=== PATIENT | female | born 1970 | race American Indian/Alaskan Native ===

== ENCOUNTER 2020-05-09 10:04 | Emergency (ER) | payer OTHER ==
[2020-05-09] MEDS ORDERED: predniSONE 20 MG TAB PO ONE (10:56)
[2020-05-09] MEDS ORDERED: IPRATROPIUM/ALBUTEROL SULFATE 3 ML AMPUL.NEB IH ONE (10:56)
--- NOTE | 2020-05-09 11:06 | Emergency Department Report ---
ED Asthma HPI - General Chief Complaint: Adult Asthma Stated Complaint: TOOTH PAIN/ASTHMA Time Seen by Provider: 05/09/20 10:56 Source: patient Mode of arrival: Ambulatory Limitations: No Limitations - History of Present Illness Initial Comments: This is a 49-year-old female nontoxic, well nourished in appearance, no acute signs of distress presents to the ED with c/o of acute on chronic asthma exacerbation. Patient also has a second complaint of left lower toothache with some swelling. Patient stated she is out of her albuterol inhaler 1 month. Patient denies any cough. Patient describes toothache as aching level of 8 out of 10. Patient denies any sick contact. Patient denies any recent travels, long car, recent hospital stays. Patient denies any calf pain or calf tenderness. Patient denies any chest pain, short of breath, fever, chills, nausea, vomiting, hemoptysis, numbness, tingling, headache or stiff neck. Past medical history i ncludes asthma. MD Complaint: wheezing, other (dental pain) -: days(s) Asthma History: childhood onset Severity: mild Context: none known Associated Symptoms: none - Related Data Current Asthma Therapy: none Previous Rx's Medication Instructions Recorded Last Taken Type ALBUTEROL NEB's [Proventil 0.083% 2.5 mg IH TID PRN #1 box 05/09/20 Unknown Rx NEBS] Albuterol Mdi (or & Nicu Only) 2 puff IH QID PRN #8.5 gram 05/09/20 Unknown Rx [ProAir HFA Inhaler] Clindamycin [Clindamycin CAP] 300 mg PO Q8H #21 cap 05/09/20 Unknown Rx Allergies Allergy/AdvReac Type Severity Reaction Status Date / Time No Known Allergies Allergy Verified 05/09/20 10:27 ED Review of Systems ROS: Stated complaint: TOOTH PAIN/ASTHMA Other details as noted in HPI Constitutional: denies: chills, fever Eyes: denies: eye pain, eye discharge, vision change ENT: dental pain. denies: ear pain, throat pain Respiratory: wheezing. denies: cough, shortness of breath Cardiovascular: denies: chest pain, palpitations Endocrine: no symptoms reported Gastrointestinal: denies: abdominal pain, nausea, diarrhea Genitourinary: denies: urgency, dysuria, discharge Musculoskeletal: denies: back pain, joint swelling, arthralgia Skin: denies: rash, lesions Neurological: denies: headache, weakness, paresthesias Psychiatric: denies: anxiety, depression Hematological/Lymphatic: denies: easy bleeding, easy bruising ED Past Medical Hx - Past Medical History Previous Medical History?: Yes Hx Asthma: Yes - Surgical History Past Surgical History?: Yes Additional Surgical History: hysterectomy - Social History Smoking Status: Never Smoker Substance Use Type: None - Medications Home Medications: Home Medications Medication Instructions Recorded Confirmed Last Taken Type ALBUTEROL NEB's [Proventil 0.083% 2.5 mg IH TID PRN #1 box 05/09/20 Unknown Rx NEBS] Albuterol Mdi (or & Nicu Only) 2 puff IH QID PRN #8.5 gram 05/09/20 Unknown Rx [ProAir HFA Inhaler] Clindamycin [Clindamycin CAP] 300 mg PO Q8H #21 cap 05/09/20 Unknown Rx ED Physical Exam - General Limitations: No Limitations General appearance: alert, in no apparent distress - Head Head exam: Present: atraumatic, normocephalic - Eye Eye exam: Present: normal appearance - Expanded ENT Exam Expanded Ear exam: Present: normal external inspection Mouth exam: Present: normal external inspection, tongue normal. Absent: drooling, trismus, muffled voice Teeth exam: Present: dental caries, fractured tooth #, dental tenderness #, gingival enlargement, other (some mandbile swelling with no induration or flutance noted.) Throat exam: Positive: normal inspection, other (uvula midline). Negative: tonsillar erythema, tonsillomegaly, tonsillar exudate, R peritonsillar mass, L peritonsillar mass - Neck Neck exam: Present: normal inspection, full ROM. Absent: tenderness, meningismus, lymphadenopathy - Respiratory Respiratory exam: Present: wheezes (bilateral upper and lower lobes). Absent: respiratory distress, rales, rhonchi, stridor, chest wall tenderness, accessory muscle use, decreased breath sounds, prolonged expiratory - Cardiovascular Cardiovascular Exam: Present: regular rate, normal rhythm, normal heart sounds. Absent: bradycardia, tachycardia, irregular rhythm, systolic murmur, diastolic murmur, rubs, gallop - Extremities Exam Extremities exam: Present: full ROM - Back Exam Back exam: Present: full ROM - Neurological Exam Neurological exam: Present: alert, oriented X3, normal gait - Psychiatric Psychiatric exam: Present: normal affect, normal mood - Skin Skin exam: Present: warm, dry, intact, normal color. Absent: rash ED Course Vital Signs 05/09/20 05/09/20 10:26 11:07 Temperature 98.8 F Pulse Rate 72 Pulse Rate [ 75 Anterior Bilateral Throughout] Respiratory 18 Rate Respiratory 18 Rate [Anterior Bilateral Throughout] Blood Pressure 123/76 O2 Sat by Pulse 98 Oximetry - Reevaluation(s) Reevaluation #1: 05/09/20 11:09 Patient is speaking in full sentences with no signs of distress noted. ED Medical Decision Making - Medical Decision Making This is a 49-year-old female that presents with asthma extubation and dental caries. Patient stable and was examined by me. Patient is stable and was examined by me. Patient did receive DuoNeb and steroids in the ED which patient the symptoms has resolved and subsided. Posttreatment and there is no wheezing upon auscultation. Patient is discharged with albuterol and prednisone. Patient was referred to Follow-up with a primary care doctor in 3-5 days or if symptoms worsen and continue return to emergency room as soon as possible. At time of discharge, the patient does not seem toxic or ill in appearance. No acute signs of distress noted. Patient agrees to discharge treatment plan of care. No further questions noted by the patient. This chart is dictated with using [employer] Dictation Program Critical care attestation.: If time is entered above; I have spent that time in minutes in the direct care of this critically ill patient, excluding procedure time. ED Disposition Clinical Impression: Dental caries, Gingivitis, Dental abscess Asthma exacerbation Qualifiers: Asthma severity: mild Asthma persistence: intermittent Qualified Code(s): J45.21 - Mild intermittent asthma with (acute) exacerbation Disposition: - TO HOME OR SELFCARE Is pt being admited?: No Does the pt Need Aspirin: No Condition: Stable Additional Instructions: Follow-up with a primary care doctor in 3-5 days or if symptoms worsen and continue return to emergency room as soon as possible. Follow-up with a oral surgeon in 24 hours or if symptoms worsen and continue return to the emergency room soon as possible. [facility] Address: [id number], [place] [address] Hours: Wednesday Closed Wednesday 8AM-1PM, 2-5PM Wednesday 8AM-1PM, 2-5PM Wednesday 8AM-1PM, 2-5PM 8AM-1PM, 2-5PM Wednesday 7AM-2PM Wednesday Closed Prescriptions: Clindamycin [Clindamycin CAP] 300 mg PO Q8H #21 cap Albuterol Mdi (or & Nicu Only) [ProAir HFA Inhaler] 2 puff IH QID PRN #8.5 gram PRN Reason: Shortness Of Breath ALBUTEROL NEB's [Proventil 0.083% NEBS] 2.5 mg IH TID PRN #1 box PRN Reason: Wheezing Referrals: PRIMARY CARE, [Referring] - 3-5 Days TIKI BECERRA MD [Staff Physician] - 3-5 Days [facility] [Provider Group] - 3-5 Days Forms: Work/School Release Form(ED)
[2020-05-09 11:07] VITALS: BP 123/76
== END 2020-05-09 11:47 | disposition home or self-care (01) ==
LOC: ED 10:04
DX: K02.9 Dental caries, unspecified (principal); K05.10 Chronic gingivitis, plaque induced; K04.7 Periapical abscess without sinus; J45.901 Unspecified asthma with (acute) exacerbation; Z79.899 Other long term (current) drug therapy
CPT/HCPCS: 94640; 99282; J7512; 94644

== ENCOUNTER 2020-09-30 08:09 | Emergency (ER) | payer SELFPAY ==
--- NOTE | 2020-09-30 08:24 | Emergency Department Report ---
Blank Doc - Documentation Documentation: 50-year-old female with right facial swelling and right neck lymphedema. 1- This initial assessment/diagnostic orders/clinical plan/ treatment(s) is/are subject to change based on pt's health status, clinical progression and re- assessment by fellow clinical providers in the ED. Further treatment and workup at subsequent clinical provers discretion. Patient/guardians urged not to elope from ED as their condition may be serious if not clinically assessed and managed. 2-labs 3-possible CT
[2020-09-30 09:18] LABS: Basophils % (Auto) 0.6 % (0.0-1.8); Eosinophils % (Auto) 0.3 % (0.0-4.3); Hemoglobin 13.3 gm/dl (10.1-14.3); Lymphocytes % (Auto) 29.2 % (13.4-35.0); Mean Corpuscular HGB Conc 33 % (30-34); Mean Corpuscular Volume 89 fl (79-97); Monocytes # (Auto) 0.2 K/mm3 (0.0-0.8); Monocytes % (Auto) 6.8 % (0.0-7.3); Platelet Count 173 K/mm3 (140-440); Red Cell Distribution Width 13.9 % (13.2-15.2)
[2020-09-30 09:33] LABS: Blood Urea Nitrogen 12 mg/dL (7-17); Calcium 8.8 mg/dL (8.4-10.2); Hemolysis Index 1
[2020-09-30 10:14] LABS: BUN/Creatinine Ratio 17
--- NOTE | 2020-09-30 10:24 | Emergency Department Report ---
ED General Adult HPI - General Chief complaint: Skin/Abscess/Foreign Body Stated complaint: SWOLLEN TONGUE AND FACE PUI?: No Time Seen by Provider: 09/30/20 08:22 Source: patient, RN notes reviewed, old records reviewed Mode of arrival: Ambulatory Limitations: No Limitations - History of Present Illness Initial comments: The patient was evaluated in the emergency department for symptoms described in the history of present illness. He/she was evaluated in the context of the global COVID-19 pandemic, which necessitated consideration that the patient might be at risk for infection with the virus that causes COVID-19. Instit utional protocols and algorithms that pertain to the evaluation of patients at risk for COVID-19 are in a state of rapid change based on information released by regulatory bodies including the CDC and federal and state organizations. These policies and algorithms were followed during the patient's care in the emergency department. Please note that these policies, procedures and recommendations changed on a rapid basis. During the entire history and physical examination, I was chaperoned and escorted by Ms. Luna Salas The patient is a 50-year-old female. She is not known to myself previously. She has a distant history of hysterectomy, and dental caries. She may also have a history of obstructed sublingual glands in the past. She presents to the ER with a complaint of painless submandibular swelling, present over the past 24 hours. She also feels like she has "swollen lymph nodes on the inferior aspect of her jaw. Denies headache, neck pain, chest pain, abdominal pain, shortness of breath, vomiting, diaphoresis, loss of taste and smell. Patient states that this has not happened to her for a while. She has no head or scalp pain. She reports that she was presumptively diagnosed a while back with "swollen glands", but has not followed up with ENT. The patient reports she does not take antihypertensive therapy, specifically, does not take SANDRA inhibitors. -: Sudden, hour(s) (24 hours) Location: neck Radiation: non-radiation Consistency: constant Improves with: none Worsens with: none Associated Symptoms: denies other symptoms - Related Data Previous Rx's Medication Instructions Recorded Last Taken Type ALBUTEROL NEB's [Proventil 0.083% 2.5 mg IH TID PRN #1 box 05/09/20 Unknown Rx NEBS] Albuterol Mdi (or & Nicu Only) 2 puff IH QID PRN #8.5 gram 05/09/20 Unknown Rx [ProAir HFA Inhaler] Clindamycin [Clindamycin CAP] 300 mg PO Q8H #21 cap 05/09/20 Unknown Rx Allergies Allergy/AdvReac Type Severity Reaction Status Date / Time No Known Allergies Allergy Verified 09/30/20 08:12 ED Review of Systems ROS: Stated complaint: SWOLLEN TONGUE AND FACE Other details as noted in HPI Constitutional: denies: fever, malaise, weakness Eyes: denies: eye discharge ENT: throat pain (Patient subjectively feels like her throat is tight. There is no dysphonia.), congestion. denies: ear pain, dental pain, hearing loss, epistaxis Respiratory: denies: cough, shortness of breath Cardiovascular: denies: chest pain Gastrointestinal: denies: abdominal pain Genitourinary: as per HPI Skin: denies: lesions Neurological: denies: weakness Hematological/Lymphatic: denies: easy bleeding ED Past Medical Hx - Past Medical History Hx Asthma: Yes - Surgical History Additional Surgical History: hysterectomy - Social History Smoking Status: Never Smoker Substance Use Type: None - Medications Home Medications: Home Medications Medication Instructions Recorded Confirmed Last Taken Type ALBUTEROL NEB's [Proventil 0.083% 2.5 mg IH TID PRN #1 box 05/09/20 Unknown Rx NEBS] Albuterol Mdi (or & Nicu Only) 2 puff IH QID PRN #8.5 gram 05/09/20 Unknown Rx [ProAir HFA Inhaler] Clindamycin [Clindamycin CAP] 300 mg PO Q8H #21 cap 05/09/20 Unknown Rx ED Physical Exam - General Limitations: No Limitations General appearance: alert, in no apparent distress, obese - Head Head exam: Present: atraumatic, normocephalic - Eye Eye exam: Present: normal appearance, PERRL, EOMI, nystagmus - ENT ENT exam: Present: normal exam, normal orophraynx, mucous membranes moist, TM's normal bilaterally, normal external ear exam - Neck Neck exam: Present: full ROM, other (There is nontender sublingual swelling noted, midline, oval-shaped, approximately 5 x 6 cm. There is no redness, pus or streaking.). Absent: tenderness, meningismus, thyromegaly - Respiratory Respiratory exam: Present: normal lung sounds bilaterally. Absent: respiratory distress, wheezes, rales, rhonchi, stridor, decreased breath sounds - Cardiovascular Cardiovascular Exam: Present: regular rate, normal rhythm, normal heart sounds. Absent: bradycardia, tachycardia, irregular rhythm, systolic murmur, diastolic murmur, rubs, gallop - GI/Abdominal GI/Abdominal exam: Present: soft, normal bowel sounds. Absent: distended, tenderness, guarding, rebound, rigid, pulsatile mass - Extremities Exam Extremities exam: Present: normal inspection, full ROM, other (2+ pulses noted in the bilateral upper and lower extremities. There is no palpable cord. negative Homans sign. Muscular compartments are soft. The pelvis is stable.). Absent: pedal edema, calf tenderness - Back Exam Back exam: Present: normal inspection, full ROM. Absent: tenderness, CVA tenderness (R), CVA tenderness (L), paraspinal tenderness, vertebral tenderness - Neurological Exam Neurological exam: Present: alert, normal gait, other (No facial droop. Tongue midline. Extraocular movements intact bilaterally. Facial sensation intact to light touch in V1, V2, V3 distribution bilaterally. 5 and a 5 strength in 4 extremities. Sensation intact to light touch in 4 extremities.). Absent: motor sensory deficit - Psychiatric Psychiatric exam: Present: anxious - Skin Skin exam: Present: warm, dry, intact, normal color. Absent: rash ED Course Vital Signs 09/30/20 09/30/20 08:13 12:19 Temperature 98.9 F 98.7 F Pulse Rate 67 62 Respiratory 18 18 Rate Blood Pressure 128/74 Blood Pressure 128/74 [Left] O2 Sat by Pulse 99 99 Oximetry - Reevaluation(s) Reevaluation #1: 09/30/20 10:52 Differential diagnosis, including but not limited to: Sublingual gland obstr uction, infection, malignancy Assessment and plan: 50-year-old female who presents with a complaint of rapid onset sublingual swelling, over the past 24 hours. She is afebrile, with reassuring vital signs, without stridor or dysphonia, speaking in full sentences, speaking on her cellular phone when I initially entered the room, does not appear to be in acute distress. She is found to have numerous dental caries and poor dentition. However, she has no stridor, she is speaking in complete sentences, and she is in no acute respiratory distress. The tongue is not swollen, the trachea is midline and nontender, and her sublingual swelling is nontender without redness, pus, streaking or significant induration, crepitus, or fluctuance. However, given that the patient endorses that this rapidly developed in the past 24 hours, we will obtain CT scan of the neck to exclude surgical process. Have discussed this plan of care with the patient, who is amenable. Laboratory studies ordered prior to my personal evaluation of this patient, they were reviewed and fairly unremarkable. Reevaluation #2: 09/30/20 12:12 CT scan reviewed and appreciated. Patient resting comfortably and protecting airway. We will initiate antibiotic therapy. This [facility] does not have a ENT, or oral maxillofacial surgery available for consultation. We will therefore discuss with either ENT, or OMFS consultants at [facility]. Have placed a page out to the [facility] transfer center. 09/30/20 12:14 - Consultations Consultation #1: 09/30/20 12:29 Discussed patient's history, physical, pertinent laboratory studies and imaging findings with the ENT on-call for [facility], Dr. Lassiter. We both agree that this is unlikely to be Ludewig's angina based off of the patient's presentation, inability to protect her airway. He further advises that dental control for presumed odontogenic infection is likely to be the best course of action for this patient. This [facility] does not have dental services or OMFS available for consultation. I have therefore requested that [facility] transfer center contacted OMFS to discuss plan of care. Consultation #2: 09/30/20 12:50 Have discussed patient's history, physical, pertinent laboratory studies and imaging findings with Dr. Wellington, [facility] indicates his group can evaluate the patient in the emergency room. Have discussed patient's history, physical, pertinent laboratory studies and helga ging findings with the ER physician, Dr. Nelson Patient to be transferred for [facility] for consultative services and evaluation not available at this facility. Discussed this with the patient. She is amenable to transfer for definitive care and services not available at this facility. At the moment she is protecting her airway, is not stridulous, in no acute distress. Patient has a potentially emergent/surgical condition which cannot be definitively managed at this time at this hospital as we do not have the necessary subspecialty services. However, she is hemodynamically stable and protecting her airway, and suitable for transfer at this time for definitive management. 09/30/20 12:55 ED Medical Decision Making - Lab Data Result diagrams: 09/30/20 08:55 09/30/20 08:55 Vital Signs 09/30/20 08:13 Temperature 98.9 F Pulse Rate 67 Respiratory 18 Rate Blood Pressure 128/74 O2 Sat by Pulse 99 Oximetry Lab Results 09/30/20 09/30/20 09/30/20 Range/Units 08:55 08:55 08:55 WBC 3.4 L (4.5-11.0) K/mm3 RBC 4.50 (3.65-5.03) M/mm3 Hgb 13.3 (10.1-14.3) gm/dl Hct 40.0 (30.3-42.9) % MCV 89 (79-97) fl MCH 30 (28-32) pg MCHC 33 (30-34) % RDW 13.9 (13.2-15.2) % Plt Count 173 (140-440) K/mm3 Lymph % (Auto) 29.2 (13.4-35.0) % [place] % (Auto) 6.8 (0.0-7.3) % Eos % (Auto) 0.3 (0.0-4.3) % Baso % (Auto) 0.6 (0.0-1.8) % Lymph # (Auto) 1.0 L (1.2-5.4) K/mm3 [place] # (Auto) 0.2 (0.0-0.8) K/mm3 Eos # (Auto) 0.0 (0.0-0.4) K/mm3 Baso # (Auto) 0.0 (0.0-0.1) K/mm3 Seg Neutrophils % 63.1 (40.0-70.0) % Seg Neutrophils # 2.2 (1.8-7.7) K/mm3 Sodium 141 (137-145) mmol/L Potassium 3.9 (3.6-5.0) mmol/L Chloride 105.2 (98-107) mmol/L Carbon Dioxide 31 H (22-30) mmol/L Anion Gap 9 mmol/L BUN 12 (7-17) mg/dL Creatinine 0.7 (0.6-1.2) mg/dL Estimated GFR > 60 ml/min BUN/Creatinine Ratio 17 % Glucose 84 (65-100) mg/dL Calcium 8.8 (8.4-10.2) mg/dL HCG, Qual Negative (Negative) - Radiology Data Radiology results: report reviewed, image reviewed CT NECK WITH INTRAVENOUS CONTRAST AND MULTIPLANAR RECONSTRUCTION CLINICAL HISTORY: submandibular swelling TECHNIQUE: 2.5 mm thick contiguous axial scans were obtained from the skull base down to the aortic arch during intravenous contrast administration. In addition to evaluation of axial source images sagittal and coronal multiplanar reconstructions were produced and reviewed for this report. Contrast dose report: Omnipaque 300: 100 mL administered intravenously All CT imaging studies performed at this facility utilize dose modulation, iterative reconstruction or weight based dosing, if appropriate, to obtain the lowest achievable radiation dose. FINDINGS: AIRWAY: No abnormalities are seen along the course of the airway. Nasopharynx, oropharynx, hypopharynx, larynx and visualized portions of the subglottic airway all have an unremarkable appearance. LYMPH NODES: Prominent lymph nodes are present in level 1B bilaterally, right worse than left. These appear to be reactive lymph nodes. No indication of pathological adenopathy is observed. ORAL CAVITY/FLOOR OF MOUTH: Extensive infiltrative changes are seen in the fat of the floor of the oral cavity. This is most pronounced on the right. Edematous inflammatory changes extend inferiorly below the level of the hyoid bone. Multiple dental caries are demonstrated at multiple empty tooth sockets are observed. There are periapical lucency at the root of the tooth 6 or 7. A eugenia apical abscess cannot be excluded in this location. This is remote to the patient's extensive soft tissue infection of the floor of mouth and suprahyoid neck. MAJOR SALIVARY GLANDS: The submandibular glands are enlarged bilaterally. Bilateral sialolithiasis is observed with multiple stones in both submandibular salivary glands. The largest stone is located on the left along the superior margin of the left submandibular salivary gland, presumably near the origin of Chula's duct. No additional stones are identified along the course of the right Wheatland's ducts. Additionally noted are low attenuation regions within both submandibular salivary glands. These could represent dilated intraglandular ductal structures. Possibility of abscesses cannot be excluded. Findings indicate the presence of bilateral (right worse than left) sialoadenitis of the submandibular salivary glands. NASAL CAVITY AND PARANASAL SINUSES: Evaluation of the nasal cavity reveals no abnormality. Circumferential mucosal thickening is present in the maxillary sinuses bilaterally. Opacification of multiple ethmoid air cells is observed. Frontal and sphenoid sinuses appear clear. ORBITS:No abnormalities of the visualized portions of the orbits are identified. Globes, optic nerves, extraocular muscles and lacrimal glands have an unremarkable appearance. THYROID GLAND: The thyroid gland is normal in size and homogeneous in attenuation. No focal thyroid lesions are identified. TEMPORAL BONES:Mastoid air cells are normally pneumatized. CERVICAL SPINE: Evaluation of the cervical spine reveals no significant abnormality. Normal alignment is maintained. No significant degenerative changes are identified. LUNG APICES: Evaluation of the lung apices reveals no abnormality. There is no indication of lung nodule or infiltrate. The visualized portions of the superior mediastinum have an unremarkable appearance. CONTRAST ADMINISTRATION: Enhancement of normal vascular structures is demonstrated. No areas of abnormal contrast enhancement are identified. IMPRESSION: 1. Extensive inflammatory changes are observed in the floor of mouth extending down into the suprahyoid neck bilaterally (right worse than left). 2. Both submandibular salivary glands have an abnormal appearance. Sialolithi asis is present bilaterally. Low-attenuation regions in both submandibular salivary glands may reflect presence of dilated intraglandular ductal systems. Possibility of abscess cannot be excluded. Findings indicate the unusual diagnosis of bilateral submandibular sialoadenitis. Signer Name: Derick Moore MD Signed: 09/30/2020 10:57 AM Workstation Name: [id number] Critical care attestation.: If time is entered above; I have spent that time in minutes in the direct care o f this critically ill patient, excluding procedure time. ED Disposition Clinical Impression: Submandibular swelling, Dental caries, Mouth swelling, Sialolithiasis Disposition: DC/TX- [facility] IP Is pt being admited?: No Does the pt Need Aspirin: No Condition: Good Referrals: PRIMARY CARE, [Primary Care Provider] - 3-5 Days
[2020-09-30] MEDS ORDERED: SODIUM CHLORIDE 0.9% 250ML 250 ML IV ONE (10:31)
--- NOTE | 2020-09-30 12:02 | Cat Scan Report ---
CT NECK WITH INTRAVENOUS CONTRAST AND MULTIPLANAR RECONSTRUCTION CLINICAL HISTORY: submandibular swelling TECHNIQUE: 2.5 mm thick contiguous axial scans were obtained from the skull base down to the aortic arch during intravenous contrast administration. In addition to evaluation of axial source images sagittal and co darek multiplanar reconstructions were produced and reviewed for this report. Contrast dose report: Omnipaque 300: 100 mL administered intravenously All CT imaging studies performed at this facility utilize dose modulation, iterative reconstruction o r weight based dosing, if appropriate, to obtain the lowest achievable radiation dose. FINDINGS: AIRWAY: No abnormalities are seen along the course of the airway. Nasopharynx, oropharynx, hypopharyn x, larynx and visualized portions of the subglottic airway all have an unremarkable appearance. LYMPH NODES: Prominent lymph nodes are present in level 1B bilaterally, right worse than left. These appear to be reactive lymph nodes. No indication of pathological adenopathy is observed. ORAL CAVITY/FLOOR OF MOUTH: Extensive infiltrative changes are seen in the fat of the floor of the or al cavity. This is most pronounced on the right. Edematous inflammatory changes extend inferiorly bel ow the level of the hyoid bone. Multiple dental caries are demonstrated at multiple empty tooth socke ts are observed. There are periapical lucency at the root of the tooth 6 or 7. A periapical abscess c annot be excluded in this location. This is remote to the patient's extensive soft tissue infection o f the floor of mouth and suprahyoid neck. MAJOR SALIVARY GLANDS: The submandibular glands are enlarged bilaterally. Bilateral sialolithiasis is observed with multiple stones in both submandibular salivary glands. The largest stone is located on the left along the superior margin of the left submandibular salivary gland, presumably near the krista gin of [place]'s duct. No additional stones are identified along the course of the right [place]'s du cts. Additionally noted are low attenuation regions within both submandibular salivary glands. These could represent dilated intraglandular ductal structures. Possibility of abscesses cannot be excluded . Findings indicate the presence of bilateral (right worse than left) sialoadenitis of the submandibu lar salivary glands. NASAL CAVITY AND PARANASAL SINUSES: Evaluation of the nasal cavity reveals no abnormality. Circumfere ntial mucosal thickening is present in the maxillary sinuses bilaterally. Opacification of multiple e thmoid air cells is observed. Frontal and sphenoid sinuses appear clear. ORBITS:No abnormalities of t he visualized portions of the orbits are identified. Globes, optic nerves, extraocular muscles and la crimal glands have an unremarkable appearance. THYROID GLAND: The thyroid gland is normal in size and homogeneous in attenuation. No focal thyroid l esions are identified. TEMPORAL BONES:Mastoid air cells are normally pneumatized. CERVICAL SPINE: Evaluation of the cervical spine reveals no significant abnormality. Normal alignment is maintained. No significant degenerative changes are identified. LUNG APICES: Evaluation of the lung apices reveals no abnormality. There is no indication of lung nod ule or infiltrate. The visualized portions of the superior mediastinum have an unremarkable appearanc e. CONTRAST ADMINISTRATION: Enhancement of normal vascular structures is demonstrated. No areas of abnor mal contrast enhancement are identified. IMPRESSION: 1. Extensive inflammatory changes are observed in the floor of mouth extending down into the suprahyo id neck bilaterally (right worse than left). 2. Both submandibular salivary glands have an abnormal appearance. Sialolithiasis is present bilater ally. Low-attenuation regions in both submandibular salivary glands may reflect presence of dilated i ntraglandular ductal systems. Possibility of abscess cannot be excluded. Findings indicate the unusua l diagnosis of bilateral submandibular sialoadenitis. Signer Name: Derick Moore MD Signed: 09/30/2020 11:57 AM Workstation Name: [id number]
[2020-09-30] MEDS ORDERED: AMPICILLIN/SULBACTA 3GM/100ML 3 GM/100 ML BAG IV ONE (13:00)
[2020-09-30 13:13] VITALS: BP 122/74
== END 2020-09-30 14:29 | disposition short-term general hospital (02) ==
LOC: ED 08:09
DX: K11.5 Sialolithiasis (principal); R22.0 Localized swelling, mass and lump, head; K02.9 Dental caries, unspecified; J45.909 Unspecified asthma, uncomplicated; Z79.899 Other long term (current) drug therapy; Z90.710 Acquired absence of both cervix and uterus
CPT/HCPCS: 36415; 70491; 80048; 82140; 84703; 85025; 87040; 96365; 99285; J0295; J7050; Q9967